=== PATIENT | male | born 1985 | race Caucasian/White ===

== ENCOUNTER 2019-05-01 11:51 | Emergency (ER) | payer BC ==
[~2019-05-01] VITALS: Ht 182.9 cm; Wt 90.9 kg
[2019-05-01] MEDS ORDERED: LORazepam 2 mg/ml vial IM ONE ×3 (12:00→14:05)
--- NOTE | 2019-05-01 12:30 | NUR ---
BEHAVIORAL VITAL SIGN DOCUMENTATION ON STANDARD VITAL SIGN FLOW SHEET.
[2019-05-01] MEDS ORDERED: ibuprofen tablet 400 MG TABLET PO ONE (13:55)
[2019-05-01] MEDS ORDERED: ibuprofen 200mg tablet PO ONE (13:55)
--- NOTE | 2019-05-01 14:00 | NUR ---
PT REFUSED TO TAKE SLING, SAYING HE DID NOT NEED IT.
--- NOTE | 2019-05-01 14:02 | NUR ---
PT HAS BEEN FIGHTING THE RETRAINTS, YELLING AT [employer] AND REFUSES TO CALM DOWN.
--- NOTE | 2019-05-01 14:16 | NUR ---
PT CONTINUES TO YELL AT [employer] AND WILL NOT STOP. PT REFUSED MEDICATION AND IS UNCOOPERATIVE.
[2019-05-01] MEDS ORDERED: haloperidol lactate 5mg/ml inj IM ONE ×2 (14:25→15:10)
[2019-05-01] MEDS ORDERED: diphenhydrAMINE 50 mg/ml inj IM ONE (14:25)
--- NOTE | 2019-05-01 14:27 | NUR ---
PT IS FIGHTING IN THE RESTRAINTS [employer] IN ROOM, PT IS YELLING AND TRYING TO PUT A SHEET AROUND HIS NECK, [employer] IN ROOM TO INTERVENE.
--- NOTE | 2019-05-01 14:30 | NUR ---
SECURITY CALLED PT IS THRASHING IN HIS BED TRYING TO GET THE RESTRAINTS OFF.
--- NOTE | 2019-05-01 14:30 | NUR ---
Pt etremely aggitated [employer] at bedside. Pt threatening to contact [facility] regarding his quality of care while in [employer] custody stating" "I have been in 4 point restraints since arrival which reuiress Q15 min vital signs and I have not been checked on every 15 minutes per restraint protocal". Pt had not been in 4 point restraints, but only 2 point restraints on wrists since arival with verbal order recieved at 12:00. [employer] has remained at bedside the whole time, visual on pt with monitor vital signs have been done every 15 minuter per protocal. Charge nurse present during threats and ER director made aware of pt's threats to report to [facility]. Addendum: 05/01/19 at 1454 by STEVEN ERROR CORRECTION: PT HAS BEEN ON 4PT RESTRAINTS NOT 2PT INITIALLY REPORTED. VISIUAL ASSESSMENT Q15 PER PROTORAL BY PRIMARY RN AND [employer] AT BESIDE SINCE ARRIVAL.
[2019-05-01 14:42] LABS: BASOPHILS # (AUTO) 0.1 X10'3 (0-0.2); BASOPHILS % (AUTO) 0.5 % (0-1); EOSINOPHILS # (AUTO) 0.1 X10'3 (0-0.9); EOSINOPHILS % (AUTO) 0.4 % (0-6); HEMATOCRIT 43.8 % (42.0-52.0); HEMOGLOBIN 14.5 g/dl (14.0-17.9); LYMPHOCYTES # (AUTO) 1.4 X10'3 (1.1-4.8); LYMPHOCYTES % (AUTO) 10.1 % (21-51); MEAN CORPUSCULAR HEMOGLOBIN 29.3 PG (27.0-31.0); MEAN CORPUSCULAR HGB CONC 33.2 g/dL (33.0-36.5); MEAN CORPUSCULAR VOLUME 88.4 FL (78-98); MEAN PLATELET VOLUME 8.7 FL (7.4-10.4); MONOCYTES % (AUTO) 6.9 % (2-12); NEUTROPHILS # (AUTO) 11.8 X10'3 (1.8-7.7); NEUTROPHILS % (AUTO) 82.1 % (42-75); PLATELET COUNT 281 X10'3 (140-440); RED BLOOD COUNT 4.95 X10'6 (4.70-6.10); RED CELL DISTRIBUTION WIDTH 14.4 % (11.5-14.5); WHITE BLOOD COUNT 14.3 X10'3 (4.5-11.0)
--- NOTE | 2019-05-01 14:52 | NUR ---
NOTIFIED OF PT STATUS/MEDICATION AND PD REQUEST.
[2019-05-01 14:55] LABS: ALANINE AMINOTRANSFERASE 27 U/L (12-78); ALBUMIN 4.2 G/DL (3.4-5.0); ALBUMIN/GLOBULIN RATIO 1.3 (1.1-1.5); ALKALINE PHOSPHATASE 80 IU/L (46-116); ANION GAP 11 (8-16); ASPARTATE AMINO TRANSFERASE 18 U/L (10-37); BILIRUBIN,TOTAL 0.6 MG/DL (0.1-1.0); BLOOD UREA NITROGEN 15 MG/DL (7-18); BUN/CREATININE RATIO 13.3 (5.4-32.0); CALCIUM 9.2 MG/DL (8.5-10.1); CHLORIDE 106 MMOL/L (99-107); CREATINE KINASE 244 U/L (39-308); CREATININE 1.13 MG/DL (0.60-1.10); GLUCOSE 106 MG/DL (70-104); POTASSIUM 3.2 MMOL/L (3.5-5.1); SODIUM 143 MMOL/L (135-145); TOTAL CARBON DIOXIDE 25.9 MMOL/L (24-32); TOTAL PROTEIN 7.5 G/DL (6.4-8.2); eGFR 74 ML/MIN
[2019-05-01 15:22] VITALS: BP 114/67
== END 2019-05-01 15:25 ==
LOC: ER 11:52
DX: S42.302A Unspecified fracture of shaft of humerus, left arm, initial encounter for closed fracture (principal); R51 Headache; X58.XXXA Exposure to other specified factors, initial encounter; Y93.89 Activity, other specified; Y92.89 Other specified places as the place of occurrence of the external cause; Y99.8 Other external cause status
CPT/HCPCS: 36415; 70450; 73080; 80053; 82550; 85025; 96372; 99284; J1200; J1630; J2060